=== PATIENT | female | born 1960 ===

== ENCOUNTER 2024-09-16 10:59 | Emergency (ER) | payer OTHER, SELFPAY ==
[2024-09-16 11:03] VITALS: BP 133/71; PULSE 65; RESP 18; TEMP 36.6; O2SAT 98; BMI 24.6
--- NOTE | 2024-09-16 11:05 | ED_ITS ---
HPI - General Adult General Chief complaint: General Medical Stated complaint: body pains Time Seen by Provider: 09/16/24 11:29 Related Data Previous Rx's ?Medication ?Instructions ?Recorded diclofenac sodium 75 mg 75 mg PO BID 2 weeks #28 tab s 09/16/24 tablet,delayed release Allergies Allergy/AdvReac Type Severity Reaction Status Date / Time No Known Allergies Allergy Verified 09/16/24 11:07 [facility] Social History Social History Advance Directives: No Advance Directives Information Provided: No Do you have a plan to hurt others: No Plan Physical Exam ED Vital Signs: Vital Signs - 24 hr 09/16/24 11:03 09/16/24 12:04 09/16/24 14:01 Temperature 97.9 F 97.7 F 97.7 F Pulse Rate 65 58 58 Respiratory Rate 18 18 18 Blood Pressure 133/71 109/61 109/61 Pulse Oximetry 98 97 97 Oxygen Delivery Method Room Air Room Air Room Air BMI result Body Mass Index 24.6 Course Course Course Narrative: This is an RME: Additional HPI, ROS, PE not included below will be deferred to primary provider. RME assessment and note performed by: Diana López PA-C This is a [id number], with a hx of osteoporosis and diabetes, who presents to the ER with complaints of joint pains since her arrival from [place] on August 19, progressively worsening. No fevers, chills, CP or SOB. Plan: Labs, further ER eval needed Reevaluation(s) Reevaluation #1: duplicate chart Medications Administered Discontinued Medications Generic Name Dose Route Start Last Admin Trade Name Berhaneq PRN Reason Stop Dose Admin Ketorolac Tromethamine 30 mg 09/16/24 12:56 09/16/24 13:10 Ketorolac Tromethamine 30 Mg/Ml Vial IM 09/16/24 12:57 30 mg ONCE ONE Administration Tetracaine HCl 3 drop 09/16/24 11:45 09/16/24 12:31 Tetracaine Hcl/Pf 0.5% Oph Juani 4 Ml Drops EYE-RIGHT 09/16/24 11:46 Not Given ONCE ONE Medical Decision Making Lab Data 09/16/24 11:34 09/16/24 11:34 Labs: Lab Results 09/16/24 09/16/24 Range/Units 11:17 11:34 WBC 7.4 (4.8-10.8) X10*3/uL RBC 4.19 L (4.20-5.50) X10*6/uL Hgb 13.2 (12.0-16.0) g/dl Hct 38.7 (37.0-47.0) % MCV 92.4 (80.0-98.0) fL MCH 31.5 (27.0-33.0) pg MCHC 34.1 (31.0-35.0) g/dl RDW 12.6 (11.0-16.0) % Plt Count 315 (160-400) X10*3/uL MPV 10.8 (9.4-12.3) fL Immature Gran % (Auto) 0.5 H (0.0-0.4) % Neut % (Auto) 52.9 (45-73) % Lymph % (Auto) 35.4 (20-40) % Bea[place]gard % (Auto) 6.9 (2-11) % Eos % (Auto) 3.8 (0-4) % Baso % (Auto) 0.5 (0-2) % Lymph # (Auto) 2.6 (1.2-4.9) X10*3/uL Bea[place]gard # (Auto) 0.5 (0.1-1.2) X10*3/uL Eos # (Auto) 0.3 (0.0-0.4) X10*3/uL Baso # (Auto) 0.0 (0.0-0.2) X10*3/uL Abs Immat Gran (auto) 0.04 H (0.00-0.03) X10*3/uL Absolute Neuts (auto) 3.9 (2.0-8.3) x10*3/uL Absolute Nucleated RBC 0.000 (0.0-0.012) X10*3/uL Nucleated RBC % (auto) 0.0 (0.0-0.2) /100WBC Sodium 139 (135-145) mmol/L Potassium 4.3 (3.3-5.1) mmol/L Chloride 107 (96-108) mmol/L Carbon Dioxide 23 (22-29) mmol/L Anion Gap 13 (12-20) BUN 25 H (9-16) mg/dL Creatinine 0.82 (0.5-1.4) mg/dL Estim Creat Clear Calc 56.4 Estimated GFR > 60 POC Glucose 127 H (60-115) mg/dL Random Glucose 120 H (60-115) mg/dL Calcium 9.1 (8.4-10.2) mg/dL Magnesium 1.7 (1.6-2.6) mg/dL Total Bilirubin 0.2 (0.0-1.0) mg/dL Direct Bilirubin < 0.2 (0.0-0.5) mg/dL AST 33 H (5-31) U/L ALT 51 H (0-31) U/L Alkaline Phosphatase 44 (39-117) U/L Total Protein 6.8 (6.5-8.0) g/dL Albumin 4.2 (3.5-5.0) g/dL Discharge Plan Discharge Clinical Impression: Joint pain Qualifiers: Joint pain location: unspecified Qualified Code(s): M25.50 - Pain in unspecified joint Trigger finger Qualifiers: Trigger finger location: ring finger Laterality: right Qualified Code(s): M 65.341 - Trigger finger, right ring finger Patient Disposition: Home, Self-Care Instructions: Tenosynovitis (ED), Trigger Finger (ED), Warm Compress or Soak (ED) Additional Instructions: You were evaluated in the emergency department today due to joint pain of your hands, ankles, shoulders. Your blood work was all in the normal range, your random serum glucose level was 120. Your physical exam did not reveal any emergent or alarming finding. At this time I believe you are experiencing some osteoarthritic pain, and inflammation of your 4th finger on the right hand hand called trigger finger but you need to follow up with your PCP in [place] for official diagnosis. You were medicated in the department today with an intramuscular injection of 30mg of a strong NSAID called Toradol. This medication usually starts working within 30 minutes and reaches its full efficacy within 1-2 hours after administration. This medication will last in your body for approximately 8 hours. Please do not take any other NSAIDs until 9:00 p.m. tonight. You can take Tylenol for any breakthrough pain. You are being prescribed a 2 week course of an NSAID called diclofenac which will treat both of your possible arthritic pain and trigger finger. Please return to the ED if you experience worsening pain, burning/tingling/numbness of the extremities, skin changes including warmth, redness, rash, reduced sensation of the extremities, calf pain, shortness of breath, chest pain, nausea, vomiting, fever over 100.4? or any other new/worsening/concerning symptoms. Prescriptions: New diclofenac sodium 75 mg tablet,delayed release (DR/EC) 75 mg PO BID 14 Days Qty: 28 0RF Interventions: ED Discharge Assessment Last Done: 09/16/24 14:01 Discharge Date/Time: 09/16/24 14:02 Print Language: Stateless
--- NOTE | 2024-09-16 11:18 | MHC.EDTECH ---
Attempted to do labs daughter stated pt tends to hit she terrified of needle. I suggested to pt to wait toil seeing the provider due to the fear if needed poc done. saddle and harness maker notified
[2024-09-16 11:21] LABS: Glucose, Whole Blood 127 mg/dL (60-115)
[2024-09-16 11:38] LABS: MANUAL DIFF FLAG NO
[2024-09-16 11:40] LABS: Basophils Percent Auto 0.5 % (0-2); Eosinophils Absolute Auto 0.3 X10*3/uL (0.0-0.4); Eosinophils Percent Auto 3.8 % (0-4); Hematocrit 38.7 % (37.0-47.0); Hemoglobin 13.2 g/dl (12.0-16.0); Imm Gran Abs Auto 0.04 X10*3/uL (0.00-0.03); Imm Gran Pct Auto 0.5 % (0.0-0.4); Lymphocytes Absolute Auto 2.6 X10*3/uL (1.2-4.9); Lymphocytes Percent Auto 35.4 % (20-40); Mean Corpuscular HGB Conc 34.1 g/dl (31.0-35.0); Mean Corpuscular Hemoglobin 31.5 pg (27.0-33.0); Mean Corpuscular Volume 92.4 fL (80.0-98.0); Mean Platelet Volume 10.8 fL (9.4-12.3); Monocytes Absolute Auto 0.5 X10*3/uL (0.1-1.2); Monocytes Percent Auto 6.9 % (2-11); Neutrophils Absolute Auto 3.9 x10*3/uL (2.0-8.3); Neutrophils Percent Auto 52.9 % (45-73); Platelet Count 315 X10*3/uL (160-400); Red Blood Count 4.19 X10*6/uL (4.20-5.50); Red Cell Distribution Width 12.6 % (11.0-16.0); White Blood Count 7.4 X10*3/uL (4.8-10.8)
--- NOTE | 2024-09-16 11:40 | ED.GENADULT ---
HPI - General Adult General Chief complaint: General Medical Stated complaint: body pains Time Seen by Provider: 09/16/24 11:29 Source: patient Mode of arrival: ambulatory Limitations: no limitations History of Present Illness ED Provider: Vitaliy Bains PA-C HPI narrative: 63-year-old female with medical history of HTN, HLD, osteoporosis, T2DM not dependent on insulin, presents to the ED with 1 month of increasing joint pain. Patient states she resides in [place], she believes the ?colder? weather here has caused her to have joint pain and believes she may have arthritic pain, describing pain as a dull cramping like ache. Patient states pain is most significant in her ankles which travels up to the right hip, hands, and shoulders. She denies any radicular or nerve pain. Patient reports that she follows with a PCP in [place] but was unable to see him before coming to the [facility] her [facility]. She endorses that pain is better with hot showers, she has been taking Tylenol without effect. Additionally she is concerned over a finger on her Denies chest pain, shortness of breath, nausea, vomiting, diarrhea, black/tarry stool, headaches, visual changes, dizziness, lightheadedness, weakness. MD complaint: joint pain Onset (ago): month(s) (1) Location: upper extremity and lower extremity Radiation: other (R hip) Quality: aching Pain Consistency: constant Relieving factors: other (Heat therapy) Exacerbating factors: cold therapy and movement Associated symptoms: denies other symptoms Treatments prior to arrival: none Related Data Previous Rx's ?Medication ?Instructions ?Recorded diclofenac sodium 75 mg 75 mg PO BID 2 weeks #28 tabs 09/16/24 tablet,delayed release Allergies Allergy/AdvReac Type Severity Reaction Status Date / Time No Known Allergies Allergy Verified 09/16/24 11:07 Review of Systems Review of Systems: CONST: Negative for fever, body aches and chills. HENT: Negative for neck pain/stiffness, headache, congestion, sore throat, swelling. EYES: Negative for discharge/pain or vision changes. RESP: Negative for cough/hemoptysis and shortness of breath. CV: Negative chest pain, difficulty breathing, palpitations. ABD: Negative pain, nausea, vomiting. : Negative increase frequency, dysuria, blood in urine or stool. MUSC: Negative for muscle aches, edema. POS joint pain of shoulders, hands, ankles, R hip, trigger finger of 4th digit R hand SKIN: Negative rash, lesions/sores. NEURO: Negative headache, dizziness, weakness. [facility] Past Medical History Attestation statement: The following information was validated with the patient. Source: unable to obtain (Patient resides in [place]), old records reviewed and nursing notes reviewed Social History Social History Advance Directives: No Advance Directives Information Provided: No Do you have a plan to hurt others: No Plan Physical Exam ED Vital Signs: Vital Signs - 24 hr 09/16/24 11:03 09/16/24 12:04 Temperature 97.9 F 97.7 F Pulse Rate 65 58 Respiratory Rate 18 18 Blood Pressure 133/71 109/61 Pulse Oximetry 98 97 Oxygen Delivery Method Room Air Room Air BMI result Body Mass Index 24.6 GENERAL APPEARANCE: ?AxOx4, generally well-appearing, no acute distress. HEENT: ?NC, AT. MMM. EOMI, clear conjunctiva, oropharynx clear. NECK: ?Supple without lymphadenopathy.? No stiffness or restricted ROM. HEART:? Normal rate and regular rhythm, normal S1/S1, no m/r/g LUNGS:? CTAB, moving air well. No crackles or wheezes are heard. ABDOMEN: ?Soft, nontender, nondistended with good bowel sounds heard. BACK: No CVAT, no obvious deformity. EXTREMITIES: ?Without cyanosis, clubbing or edema. No calf pain, no erythema, no edema of bilateral extremities, sensation intact. 4th digit of R hand exhibiting signs of stenosing flexor tenosynovitis during ROM as finger does not go into full extension with mild clicking when stretching finger to full extension. No edema or overlying skin changes of digit. NEUROLOGICAL: ?Grossly nonfocal. Alert and oriented, moving all 4 extremities. Observed to ambulate with normal gait. Skin: ?Warm and dry without any rash. Medications Administered Discontinued Medications Generic Name Dose Route Start Last Admin Trade Name Freq PRN Reason Stop Dose Admin Ketorolac Tromethamine 30 mg 09/16/24 12:56 09/16/24 13:10 Ketorolac Tromethamine 30 Mg/Ml Vial IM 09/16/24 12:57 30 mg ONCE ONE Administration Tetracaine HCl 3 drop 09/16/24 11:45 09/16/24 12:31 Tetracaine Hcl/Pf 0.5% Oph Juani 4 Ml Drops EYE-RIGHT 09/16/24 11:46 Not Given ONCE ONE Medical Decision Making Medical Decision Making MDM Narrative: 63-year-old female with medical history of HTN, HLD, osteoporosis, T2DM not dependent on insulin, presents to the ED with 1 month of increasing joint pain. Patient states she resides in [place], she believes the ?colder? weather here has caused her to have joint pain and believes she may have arthritic pain, describing pain as a dull cramping like ache. Patient states pain is most significant in her ankles which travels up to the right hip, hands, and shoulders. She denies any radicular or nerve pain. Patient reports that she follows with a PCP in [place] but was unable to see him before coming to the [facility] for her vacation. She endorses that pain is better with hot showers, she has been taking Tylenol without effect. Patient denies recent trauma/injry/fall. Patient denies spending time outside, no exposure to ticks, no recent removal of tick, no recent fever, or lethargy- less likely Lyme disesase VSS, in no acute distress, nontoxic appearing. Patient is healthy appearing, endorsing active lifestyle. Physical exam reveals stenosing flexor tenosynovitis of the hand. Full ROM of hands, shoulder, ankle intact, no overlying skin changes, no edema. No calf pain to palpation, no overlying skin changes, no cyanosis, no erythema, no edema, DP pulses +2 bilaterally, sensation intact, no radicular symptoms- less likely DVT Labs WNL, random glucose is 120, no gap present, patient healthy appearing, without tachypnea, diaphoresis, nausea, vomiting, weakness.- less likely DKA, no suspicion for electrolyte imbalance. Patient without numbness, tingling, or burning in feet/toes- less likely diabetic neuropathy. At this time I believe the patient is experiencing possible osteoarthritic pain due to patient having joint pain of the shoulders, hands, ankles. With a stenosing tenosynovitis of the. We will medicate patient with 30 mg IM Toradol, and discharged with a 2 week course of diclofenac to manage arthritic pain and trigger finger. Counseled patient on the importance of following up with her PCP in [place], and strict return precautions. Differential Diagnosis Differential Diagnoses: The differential diagnosis associated with the presentation includes DKA DVT Lyme disease Diabetic neuropathy Electrolyte imbalance Osteoarthritis Stenosing flexor tenosynovitis Admission/Observation Consideration of admission/observation: Escalation of care including admission/observation considered Lab Data MDM Lab Attestation statement: I reviewed the patient's lab results. 09/16/24 11:34 09/16/24 11:34 Labs: Lab Results 09/16/24 09/16/24 Range/Units 11:17 11:34 WBC 7.4 (4.8-10.8) X10*3/uL RBC 4.19 L (4.20-5.50) X10*6/uL Hgb 13.2 (12.0-16.0) g/dl Hct 38.7 (37.0-47.0) % MCV 92.4 (80.0-98.0) fL MCH 31.5 (27.0-33.0) pg MCHC 34.1 (31.0-35.0) g/dl RDW 12.6 (11.0-16.0) % Plt Count 315 (160-400) X10*3/uL MPV 10.8 (9.4-12.3) fL Immature Gran % (Auto) 0.5 H (0.0-0.4) % Neut % (Auto) 52.9 (45-73) % Lymph % (Auto) 35.4 (20-40) % Sully % (Auto) 6.9 (2-11) % Eos % (Auto) 3.8 (0-4) % Baso % (Auto) 0.5 (0-2) % Lymph # (Auto) 2.6 (1.2-4.9) X10*3/uL Sully # (Auto) 0.5 (0.1-1.2) X10*3/uL Eos # (Auto) 0.3 (0.0-0.4) X10*3/uL Baso # (Auto) 0.0 (0.0-0.2) X10*3/uL Abs Immat Gran (auto) 0.04 H (0.00-0.03) X10*3/uL Absolute Neuts (auto) 3.9 (2.0-8.3) x10*3/uL Absolute Nucleated RBC 0.000 (0.0-0.012) X10*3/uL Nucleated RBC % (auto) 0.0 (0.0-0.2) /100WBC Sodium 139 (135-145) mmol/L Potassium 4.3 (3.3-5.1) mmol/L Chloride 107 (96-108) mmol/L Carbon Dioxide 23 (22-29) mmol/L Anion Gap 13 (12-20) BUN 25 H (9-16) mg/dL Creatinine 0.82 (0.5-1.4) mg/dL Estim Creat Clear Calc 56.4 Estimated GFR > 60 POC Glucose 127 H (60-115) mg/dL Random Glucose 120 H (60-115) mg/dL Calcium 9.1 (8.4-10.2) mg/dL Magnesium 1.7 (1.6-2.6) mg/dL Total Bilirubin 0.2 (0.0-1.0) mg/dL Direct Bilirubin < 0.2 (0.0-0.5) mg/dL AST 33 H (5-31) U/L ALT 51 H (0-31) U/L Alkaline Phosphatase 44 (39-117) U/L Total Protein 6.8 (6.5-8.0) g/dL Albumin 4.2 (3.5-5.0) g/dL External Record Review External record reviewed: Other (Records unavailable as patient lives in [place] and follows medical care there) Chronic Conditions Patient?s care impacted by: Diabetes, Hypertension and Other (HLD, osteoporosis) Discharge Plan Discharge Clinical Impression: Joint pain, Trigger finger Patient Disposition: Home, Self-Care Instructions: Tenosynovitis (ED), Trigger Finger (ED), Warm Compress or Soak (ED) Additional Instructions: You were evaluated in the emergency department today due to joint pain of your hands, ankles, shoulders. Your blood work was all in the normal range, your random serum glucose level was 120. Your physical exam did not reveal any emergent or alarming finding. At this time I believe you are experiencing some osteoarthritic pain, and inflammation of your 4th finger on the right hand hand called trigger finger but you need to follow up with your PCP in [place] for official diagnosis. You were medicated in the department today with an intramuscular injection of 30mg of a strong NSAID called Toradol. This medication usually starts working within 30 minutes and reaches its full efficacy within 1-2 hours after administration. This medication will last in your body for approximately 8 hours. Please do not take any other NSAIDs until 9:00 p.m. tonight. You can take Tylenol for any breakthrough pain. You are being prescribed a 2 week course of an NSAID called diclofenac which will treat both of your possible arthritic pain and trigger finger. Please return to the ED if you experience worsening pain, burning/tingling/numbness of the extremities, skin changes including warmth, redness, rash, reduced sensation of the extremities, calf pain, shortness of breath, chest pain, nausea, vomiting, fever over 100.4? or any other new/worsening/concerning symptoms. Prescriptions: New diclofenac sodium 75 mg tablet,delayed release (DR/EC) 75 mg PO BID 14 Days Qty: 28 0RF Print Language: Ukrainian
[2024-09-16 11:57] LABS: Alanine Aminotransferase 51 U/L (0-31); Albumin Level 4.2 g/dL (3.5-5.0); Alkaline Phosphatase 44 U/L (39-117); Anion Gap 13 (12-20); Aspartate Amino Transferase 33 U/L (5-31); Bilirubin Direct < 0.2 mg/dL (0.0-0.5); Bilirubin Total 0.2 mg/dL (0.0-1.0); Blood Urea Nitrogen 25 mg/dL (9-16); Calcium 9.1 mg/dL (8.4-10.2); Carbon Dioxide 23 mmol/L (22-29); Chloride 107 mmol/L (96-108); Creatinine Clr Calc Pharmacy 56.4; Estimated Glomerular Filt Rate > 60; Glucose Random 120 mg/dL (60-115); Magnesium 1.7 mg/dL (1.6-2.6); Potassium 4.3 mmol/L (3.3-5.1); Sodium 139 mmol/L (135-145); Total Protein 6.8 g/dL (6.5-8.0)
[2024-09-16 12:04] VITALS: BP 109/61; PULSE 58; RESP 18; TEMP 36.5; O2SAT 97
--- NOTE | 2024-09-16 12:07 | PC.NURSE ---
PT somnolent- arousable and oriented X2 Pt with stable VS on full monitor- SR no ectopy O2 applied as pt sat on RA 89. Pt with c collar in place. Pt asking for collar and O2 to be removed. Explained to pt that she needs to leave on. Pt denies pain
[2024-09-16] MEDS: Ketorolac Tromethamine 30 MG/ML VIAL IM (13:10)
[2024-09-16 14:01] VITALS: BP 109/61; PULSE 58; RESP 18; TEMP 36.5; O2SAT 97
== END 2024-09-16 14:02 | disposition home or self-care (01) ==
PROVIDERS: Physician Assistant Medical; Emergency Provider Emergency Medicine
DX: M65.341 Trigger finger, right ring finger (principal); M79.10 Myalgia, unspecified site; E11.9 Type 2 diabetes mellitus without complications; M79.641 Pain in right hand; I10 Essential (primary) hypertension; Z79.4 Long term (current) use of insulin; Z79.899 Other long term (current) drug therapy
CPT/HCPCS: 36415; 80048; 80076; 82947; 83735; 85025; 96372; 99284; J1885